=== PATIENT | male | born 1960 | race Asian ===

== ENCOUNTER 2017-09-03 22:53 | Inpatient (IN) | payer OTHER ==
[~2017-09-03] VITALS: Ht 172.7 cm; Wt 72.6 kg
[2017-09-03 23:52] LABS: MEAN CORPUSCULAR HEMOGLOBIN 30.8 pg (27.5-34.5); MEAN CORPUSCULAR HGB CONC 33.9 g/dL (33.2-36.2); MEAN CORPUSCULAR VOLUME 90.8 fL (81-97); MEAN PLATELET VOLUME 8.9 fL (7.4-10.4); PLATELET COUNT 206 x10^3/uL (130-400); RED BLOOD COUNT 4.65 x10^6/uL (4.38-5.82); RED CELL DISTRIBUTION WIDTH 12.6 % (9.4-14.8)
[2017-09-03] MEDS ORDERED: ONDANSETRON 2MG/ML, 2ML ONE (23:52)
[2017-09-04] MEDS ORDERED: ONDANSETRON 2MG/ML, 2ML IVPush ONE
[2017-09-04] MEDS ORDERED: SODIUM CHLORIDE FLUSH 10ML SYR IVF ONE
[2017-09-04] MEDS ORDERED: DIAZEPAM 5 MG/ML, 2ML IV ONE
[2017-09-04] MEDS ORDERED: SODIUM CHLORIDE 0.9% 1,000ML IVBOLUS ONE
[2017-09-04] MEDS ORDERED: PSEU120T9 PO (00:01)
[2017-09-04 00:02] LABS: MD YES
[2017-09-04 00:03] LABS: ALANINE AMINOTRANSFERASE 52 U/L (12-78); ALBUMIN 3.3 g/dL (3.4-5.0); ANION GAP 10 mmol/L (5-15); CALCIUM 8.6 mg/dL (8.5-10.1); CHLORIDE 104 mmol/L (98-107); CREATININE 1.34 mg/dL (0.7-1.3)
[2017-09-04 00:05] LABS: ALKALINE PHOSPHATASE 110 U/L (45-117); BILIRUBIN,TOTAL 0.4 mg/dL (0.2-1.0)
[2017-09-04 00:10] LABS: MONOS#(MANUAL) 0.26 x10^3/uL (0.3-2.7); MONOS% (MANUAL) 2 % (2-9)
[2017-09-04 00:11] LABS: EOS#(MANUAL) 4.81 x10^3/uL (0.0-0.4); EOS% (MANUAL) 37 % (1-7); SEG#(MANUAL) 6.24 x10^3/uL (1.8-6.8); SEGS% (MANUAL) 48 % (42-75)
[2017-09-04 00:14] LABS: BASOS#(MANUAL) 0.13 x10^3/uL (0-0.1); BASOS% (MANUAL) 1 % (0-1); LYMPH#(MANUAL) 1.56 x10^3/uL (1-3.4); LYMPHS% (MANUAL) 12 % (22-44)
[2017-09-04 00:16] LABS: <PLATELET ESTIMATE> ADEQUATE; <RBC MORPHOLOGY> NORMAL; LARGE PLATELETS 1+
[2017-09-04] MEDS ORDERED: GADOBUTROL 7.5 MMOL/7.5 ML PFS ONE (00:21)
[2017-09-04] MEDS ORDERED: PROMETHAZINE 25 MG/ML, 1ML ONE (00:38)
[2017-09-04] MEDS ORDERED: PROMETHAZINE 25 MG/ML, 1ML IM ONE (02:30)
[2017-09-04] MEDS ORDERED: OMNIPAQUE 350 MG/ML, 100ML BOTTLE ONE (02:43)
[2017-09-04 02:49] LABS: INTERNATIONAL NORMALIZED RATIO 1.07 (0.93-1.1)
[2017-09-04] MEDS ORDERED: morphine SULFATE 10 MG/ML, 1ML IVPush PRN (03:30)
[2017-09-04] MEDS ORDERED: ONDANSETRON 2MG/ML, 2ML IVPush PRN (03:30)
[2017-09-04] MEDS ORDERED: PRAVASTATIN 40 MG TABLET PO ONE (03:30)
[2017-09-04] MEDS ORDERED: hydrALAzine 20 MG/ML, 1ML IVPush PRN (03:30)
[2017-09-04] MEDS: SODIUM CHLORIDE 0.9% 1,000 ML IV SCH ×4 (04:10→22:16)
[2017-09-04 04:22] VITALS: BP 110/68
[2017-09-04 04:22] LABS: MICROSCOPIC NOT IND
[2017-09-04 04:32] LABS: CHLORIDE,URINE RANDOM 87 mmol/L; POTASSIUM,URINE RANDOM 37 mmol/L; SODIUM,URINE RANDOM 73 mmol/L
[2017-09-04 04:40] LABS: OSMOLALITY,URINE 660 mOsm/kg (500-850)
[2017-09-04 04:56] LABS: CULTURE INDICATED? NO
[2017-09-04] MEDS ORDERED: CALCIUM CARBONATE 500 MG TAB.CHEW PO ONE (05:30)
[2017-09-04 06:05] LABS: ANION GAP 6 mmol/L (5-15); CALCIUM 8.3 mg/dL (8.5-10.1); CHLORIDE 108 mmol/L (98-107); CREATININE 1.19 mg/dL (0.7-1.3)
[2017-09-04 06:09] LABS: CHOL/HDL RATIO 3.7; CHOLESTEROL, TOTAL 131 mg/dL (140-239); HDL CHOL % 27 % (26-37); HDL CHOLESTEROL (DIRECT) 35 mg/dL (40-60); LDL CHOLESTEROL,CALCULATED 85 mg/dL (54-169); LDL/HDL RATIO 2.4 (0.5-3.0); TRIGLYCERIDES 54 mg/dL (50-200); VLDL CHOLESTEROL 11 mg/dL (0-25)
[2017-09-04 07:12] LABS: MEAN CORPUSCULAR HEMOGLOBIN 30.7 pg (27.5-34.5); MEAN CORPUSCULAR HGB CONC 33.2 g/dL (33.2-36.2); MEAN CORPUSCULAR VOLUME 92.4 fL (81-97); MEAN PLATELET VOLUME 8.8 fL (7.4-10.4); PLATELET COUNT 184 x10^3/uL (130-400); RED BLOOD COUNT 4.45 x10^6/uL (4.38-5.82); RED CELL DISTRIBUTION WIDTH 12.8 % (9.4-14.8)
[2017-09-04 07:44] LABS: BASOPHILS # (AUTO) 0.04 x10^3/uL (0-0.1); BASOPHILS % (AUTO) 0 % (0-1); EOSINOPHILS % (AUTO) 21 % (1-7); LYMPHOCYTES # (AUTO) 1.29 x10^3/uL (1-3.4); LYMPHOCYTES % (AUTO) 12 % (22-44); MD SCAN; MONOCYTES # (AUTO) 0.47 x10^3/uL (0.2-0.8); MONOCYTES % (AUTO) 5 % (2-9); NEUTROPHILS # (AUTO) 6.52 x10^3/uL (1.8-6.8); NEUTROPHILS % (AUTO) 62 % (42-75)
[2017-09-04] MEDS ORDERED: LEVOFLOXACIN/PMX 750MG/150ML 150 ML IV SCH (08:00)
[2017-09-04] MEDS ORDERED: ATROPINE SYRINGE 0.1 MG/ML, 10ML ONE (09:38)
[2017-09-04] MEDS ORDERED: ACETAMINOPHEN 325 MG TABLET ONE (09:47)
[2017-09-04] MEDS ORDERED: ACETAMINOPHEN 325 MG TABLET PO PRN (10:00)
[2017-09-04] MEDS: DEXAMETHASONE 4 MG/ML, 1ML IVPush SCH ×3 (10:00→20:53)
[2017-09-04] MEDS: CEFTRIAXONE PMX 1GM/50ML 50 ML IV SCH (10:01)
[2017-09-04] MEDS: AZITHROMYCIN 500 MG in SODIUM CHLORIDE 0.9% 250 ML IV SCH (13:08)
[2017-09-05 04:34] LABS: BASOPHILS # (AUTO) 0.06 x10^3/uL (0-0.1); BASOPHILS % (AUTO) 1 % (0-1); EOSINOPHILS # (AUTO) 0.05 x10^3/uL (0-0.4); EOSINOPHILS % (AUTO) 1 % (1-7); LYMPHOCYTES # (AUTO) 1.07 x10^3/uL (1-3.4); LYMPHOCYTES % (AUTO) 10 % (22-44); MD NO; MEAN CORPUSCULAR HEMOGLOBIN 30.5 pg (27.5-34.5); MEAN CORPUSCULAR HGB CONC 32.8 g/dL (33.2-36.2); MEAN CORPUSCULAR VOLUME 92.9 fL (81-97); MEAN PLATELET VOLUME 9.2 fL (7.4-10.4); MONOCYTES # (AUTO) 0.29 x10^3/uL (0.2-0.8); MONOCYTES % (AUTO) 3 % (2-9); NEUTROPHILS # (AUTO) 9.16 x10^3/uL (1.8-6.8); NEUTROPHILS % (AUTO) 86 % (42-75); PLATELET COUNT 182 x10^3/uL (130-400); RED BLOOD COUNT 4.38 x10^6/uL (4.38-5.82); RED CELL DISTRIBUTION WIDTH 12.9 % (9.4-14.8)
[2017-09-05 04:44] LABS: ANION GAP 7 mmol/L (5-15); CALCIUM 8.2 mg/dL (8.5-10.1); CHLORIDE 112 mmol/L (98-107); CREATININE 1.17 mg/dL (0.7-1.3)
[2017-09-05] MEDS: DEXAMETHASONE 4 MG/ML, 1ML IVPush SCH ×4 (04:44→21:59)
[2017-09-05 04:52] VITALS: BP 129/82
[2017-09-05] MEDS: CEFTRIAXONE PMX 1GM/50ML 50 ML IV SCH (10:10)
[2017-09-05] MEDS: AZITHROMYCIN 500 MG in SODIUM CHLORIDE 0.9% 250 ML IV SCH (10:11)
[2017-09-05 11:47] VITALS: BP 152/95
[2017-09-05] MEDS: SODIUM CHLORIDE 0.9% 1,000 ML IV SCH ×2 (11:48→21:08)
[2017-09-05 14:58] VITALS: BP 154/85
[2017-09-05 20:00] VITALS: BP 123/70
[2017-09-06 00:31] VITALS: BP 117/70
[2017-09-06] MEDS: DEXAMETHASONE 4 MG/ML, 1ML IVPush SCH ×2 (04:47→09:35)
[2017-09-06] MEDS: SODIUM CHLORIDE 0.9% 1,000 ML IV SCH (04:47)
[2017-09-06 07:51] VITALS: BP 143/91
[2017-09-06] MEDS: CEFTRIAXONE PMX 1GM/50ML 50 ML IV SCH (07:53)
[2017-09-06] MEDS: AZITHROMYCIN 500 MG in SODIUM CHLORIDE 0.9% 250 ML IV SCH (09:35)
[2017-09-06] MEDS ORDERED: AZIT250T89 PO (11:38)
[2017-09-06] MEDS ORDERED: CEFD300C37 PO (11:38)
== END 2017-09-06 14:01 | disposition home or self-care (01) | DRG 64 ==
LOC: ED 23:59 → EDIP 09-04 01:38 → CCU 09-04 03:58 → 5SO 09-05 11:34 → DCLOUNGE 09-06 13:44
PROVIDERS: ADMIT Internal Medicine; ATTEND Internal Medicine
DX: I60.9 Nontraumatic subarachnoid hemorrhage, unspecified (principal); J18.9 Pneumonia, unspecified organism; E11.9 Type 2 diabetes mellitus without complications; G43.C0 Periodic headache syndromes in child or adult, not intractable; I10 Essential (primary) hypertension; R29.810 Facial weakness; Z79.899 Other long term (current) drug therapy; Z83.3 Family history of diabetes mellitus; Z87.891 Personal history of nicotine dependence; R00.1 Bradycardia, unspecified
CPT/HCPCS: 36415; 70496; 70498; 70553; 71046; 80048; 80053; 80061; 81003; 82436; 82570; 83735; 83935; 84100; 84133; 84300; 84443; 85025; 85610; 85730; 87081; 87205; 93005; 93306; 96372; 96374; 96375; A9585; J0456; J0696; J1100; J2405; J2550; J3360; Q9967; J7030; J7050

== ENCOUNTER 2018-02-23 20:39 | Inpatient (IN) | payer OTHER ==
[~2018-02-23] VITALS: Ht 172.7 cm; Wt 77.7 kg
[~2018-02-23 20:39] MED LIST: AZIT250T89 PO; CEFD300C37 PO; PSEU120T9 PO
[2018-02-23] MEDS ORDERED: OMEP40CA6 PO (20:57)
[2018-02-23] MEDS ORDERED: DIPHENHYDRAMINE 50 MG/ML, 1ML ONE (21:39)
[2018-02-23] MEDS ORDERED: KETOROLAC 30 MG/1 ML ONE (21:40)
[2018-02-23] MEDS ORDERED: PROCHLORPERAZINE 5 MG/ML, 2ML ONE (21:40)
[2018-02-23] MEDS ORDERED: OMNIPAQUE 350 MG/ML, 100ML BOTTLE ONE (22:00)
[2018-02-23] MEDS ORDERED: PROCHLORPERAZINE 5 MG/ML, 2ML IVPush ONE (22:00)
[2018-02-23] MEDS ORDERED: DIPHENHYDRAMINE 50 MG/ML, 1ML IVPush ONE (22:00)
[2018-02-23] MEDS ORDERED: KETOROLAC 30 MG/1 ML IVPush ONE (22:00)
[2018-02-23 22:01] LABS: BASOPHILS # (AUTO) 0.03 x10^3/uL (0-0.1); BASOPHILS % (AUTO) 0 % (0-1); EOSINOPHILS # (AUTO) 0.66 x10^3/uL (0-0.4); EOSINOPHILS % (AUTO) 10 % (1-7); LYMPHOCYTES # (AUTO) 1.37 x10^3/uL (1-3.4); LYMPHOCYTES % (AUTO) 20 % (22-44); MD NO; MEAN CORPUSCULAR HEMOGLOBIN 31.6 pg (27.5-34.5); MEAN CORPUSCULAR HGB CONC 34.4 g/dL (33.2-36.2); MEAN CORPUSCULAR VOLUME 91.8 fL (81-97); MEAN PLATELET VOLUME 9.2 fL (7.4-10.4); MONOCYTES # (AUTO) 0.43 x10^3/uL (0.2-0.8); MONOCYTES % (AUTO) 6 % (2-9); NEUTROPHILS # (AUTO) 4.31 x10^3/uL (1.8-6.8); NEUTROPHILS % (AUTO) 63 % (42-75); PLATELET COUNT 171 x10^3/uL (130-400); RED BLOOD COUNT 4.58 x10^6/uL (4.38-5.82); RED CELL DISTRIBUTION WIDTH 13.4 % (9.4-14.8)
[2018-02-23 22:11] LABS: ALBUMIN 3.5 g/dL (3.4-5.0); ANION GAP 5 mmol/L (5-15); CALCIUM 8.5 mg/dL (8.5-10.1); CHLORIDE 108 mmol/L (98-107); CREATININE 1.29 mg/dL (0.7-1.3)
[2018-02-23] MEDS ORDERED: LORazepam 2 MG/ML, 1ML ONE (22:57)
[2018-02-23] MEDS ORDERED: LORazepam 2 MG/ML, 1ML IVPush ONE (23:00)
[2018-02-23] MEDS ORDERED: PLEASE ENTER HEIGHT MC SCH (23:00)
[2018-02-24] MEDS ORDERED: KETOROLAC 30 MG/1 ML IM PRN (01:00)
[2018-02-24] MEDS ORDERED: hydrALAzine 20 MG/ML, 1ML IVPush PRN (01:00)
[2018-02-24 01:51] VITALS: BP 137/85
[2018-02-24] MEDS ORDERED: GADOBUTROL 7.5 MMOL/7.5 ML PFS ONE (03:05)
[2018-02-24 03:39] VITALS: BP 137/85
[2018-02-24 08:00] VITALS: BP 130/85
[2018-02-24] MEDS: BUTALB/APAP/CAFFEINE 50MG/325MG/40MG PO PRN ×4 (09:01→19:55)
[2018-02-24] MEDS ORDERED: GABAPENTIN 300 MG CAPSULE ONE (13:12)
[2018-02-24] MEDS ORDERED: GABAPENTIN 300 MG CAPSULE PO PRN (13:30)
[2018-02-24 14:00] VITALS: BP 115/71
[2018-02-24] MEDS ORDERED: GABAPENTIN 100 MG CAPSULE PO SCH (16:00)
[2018-02-24] MEDS ORDERED: ATORVASTATIN 80 MG TABLET PO SCH (21:00)
[2018-02-25] MEDS: BUTALB/APAP/CAFFEINE 50MG/325MG/40MG PO PRN ×3 (01:09→13:53)
[2018-02-25 04:49] LABS: ALBUMIN 3.4 g/dL (3.4-5.0); ANION GAP 8 mmol/L (5-15); CALCIUM 8.8 mg/dL (8.5-10.1); CHLORIDE 109 mmol/L (98-107)
[2018-02-25 04:53] LABS: ALANINE AMINOTRANSFERASE 30 U/L (12-78); ALKALINE PHOSPHATASE 86 U/L (45-117); BILIRUBIN,TOTAL 0.7 mg/dL (0.2-1.0); CHOLESTEROL, TOTAL 131 mg/dL (140-239); CREATININE 1.28 mg/dL (0.7-1.3); HDL CHOL % 34 % (26-37); HDL CHOLESTEROL (DIRECT) 44 mg/dL (40-60); LDL CHOLESTEROL,CALCULATED 72 mg/dL (54-169); LDL/HDL RATIO 1.6 (0.5-3.0); TOTAL PROTEIN 7.3 g/dL (6.4-8.2); TRIGLYCERIDES 73 mg/dL (50-200); VLDL CHOLESTEROL 15 mg/dL (0-25)
[2018-02-25 05:00] VITALS: BP 125/90
== END 2018-02-25 16:20 | disposition home or self-care (01) | DRG 93 ==
LOC: ED 02-24 00:36 → EDIP 02-24 00:43 → 3NE 02-24 01:30 → CCU 02-24 05:24
PROVIDERS: ADMIT Family Medicine; ATTEND Family Medicine
DX: Q28.3 Other malformations of cerebral vessels (principal); M89.9 Disorder of bone, unspecified; Q79.9 Congenital malformation of musculoskeletal system, unspecified; R51 Headache; K21.9 Gastro-esophageal reflux disease without esophagitis; R20.0 Anesthesia of skin; Z82.49 Family history of ischemic heart disease and other diseases of the circulatory system; Z87.01 Personal history of pneumonia (recurrent); Z90.5 Acquired absence of kidney; Z90.49 Acquired absence of other specified parts of digestive tract; Z88.5 Allergy status to narcotic agent
CPT/HCPCS: 36415; 70450; 70496; 70553; 80048; 80053; 80061; 82040; 85025; 87081; 93005; 96374; 96375; A9585; J1885; Q9967; J0360; J0780; J1200; J2060